=== PATIENT | male | born 1960 | race Caucasian/White ===

== ENCOUNTER 2019-09-26 13:56 | Outpatient (RCR) | payer SELFPAY | END 2019-10-15 23:59 | disposition home or self-care (01) | LOC: WOUND 13:56 | PROVIDERS: Family Provider Physician Assistant Medical; Visit Provider Nurse Practitioner Family | DX: I89.0 Lymphedema, not elsewhere classified (principal); L97.511 Non-pressure chronic ulcer of other part of right foot limited to breakdown of skin; L97.522 Non-pressure chronic ulcer of other part of left foot with fat layer exposed; L97.821 Non-pressure chronic ulcer of other part of left lower leg limited to breakdown of skin | CPT/HCPCS: 99204; 99214 ==

== ENCOUNTER 2022-11-27 18:19 | Emergency (ER) | payer SELFPAY ==
[2022-11-27] VITALS (10 sets, daily range): BP systolic 129–148; BP diastolic 60–78; PULSE 60–88; RESP 12–18; TEMP 37; O2SAT 97–100; BMI 25.0
--- NOTE | 2022-11-27 18:23 | ECG_ITS ---
Test Date: 2022-11-27 Pat Name: Norm Torrez Department: Room: Gender: Male Ladle Watcher: : 1960 Requested By: Mihai Whitney Order Number: [id number] Dave MD: David Reyes M.D. Measurements Intervals Etta Rate: 89 P: 94 ME: 240 QRS: 40 QRSD: 93 T: 84 QT: 390 QTc: 475 Interpretive Statements SINUS RHYTHM WITH FIRST DEGREE AV BLOCK LEFT VENTRICULAR HYPERTROPHY AND ST-T CHANGE [VOLTAGE CRITERIA PLUS ST/T ABNORMALITY] Nonspecific T wave changes Compared to ECG 07/17/2015 17:48:16 ST (T wave) deviation now present Electronically Signed On 11-27-2022 21:10:24 CDT by David Reyes M.D. [id number]
--- NOTE | 2022-11-27 18:35 | XRR_ITS ---
PROCEDURE INFORMATION: Exam: XR Chest Exam date and time: 11/27/2022 6:43 PM Age: 62 years old Clinical indication: Other: Posterior in upper back; Patient HX: C/O chest pain; Additional info: Cp TECHNIQUE: Imaging protocol: Radiologic exam of the chest. Views: 1 view. COMPARISON: No relevant prior studies available. FINDINGS: Lungs: No consolidation. Pleural spaces: No pleural effusion. No pneumothorax. Heart/Mediastinum: No cardiomegaly. Bones/joints: Visualized osseous structures are intact. XR/XR chest 1V portable [id number] IMPRESSION: No acute findings.
--- NOTE | 2022-11-27 18:37 | ED_ITS ---
HPI - Chest Pain General: Chief Complaint: Chest Pain Stated Complaint: STEMI Alert Time Seen by Provider: 11/27/22 18:34 Source: patient and EMS Mode of arrival: EMS Limitations: no limitations History of Present Illness: This patient was transported from his home via EMS. The initial notification fr EMS came in as a possible STEMI alert. The patient stated to this examiner that he developed chest pain at approximately 5 AM. He states his symptoms began with pain in his arms then proceeded to have pain in his chest. He states that it seemed to radiate to his back at some times. He denies to be ripping or tearing it did not to be related to position or activity. He states that he thought he had a heart attack many years ago but did not receive any intervention such as angiogram stent placement etc. He states he drink several beers today thought it make him feel better but to no avail. Eventually his daughter who came to see him called EMS and they arrived. Upon arrival EMS perf ormed an EKG thought there might be some ST wave changes and that thought combined with his symptoms he received 324 mg of aspirin chewed as well as a sublingual and topical nitroglycerin. He is patient states his symptoms are much improved but not completely resolved. Patient denies any recent illness cough congestion fever chest wall injury, skin rashes etc. Should be noted that cardiology was present at the time of the patient's initial presentation given that it was called out as a STEMI alert. MD complaint: chest pain Pertinent past history: prior ND Onset (ago): hour(s) Onset: during rest Pain location: substernal Pain radiation: right arm and left arm Quality: aching Relieving factors: nitroglycerin Associated symptoms: Reports abdominal pain and nausea; Deny dyspnea, fever(s), syncope or vomiting Risk Factors: Coronary artery disease risk factors: smoking history Review of Systems Const: Denies: fever(s) or chills Eyes: Denies: change in vision ENMT: Denies: throat pain, odynophagia, nasal discharge or nasal congestion Card: Reports: chest pain; Denies: syncope or pre-syncope Resp: Denies: dyspnea, productive cough or non-productive cough GI: Reports: abdominal pain and nausea; Denies: vomiting, diarrhea or melena : Denies: flank pain, difficulty urinating, dysuria or urinary frequency Musc: Reports: back pain; Denies: neck pain, extremity pain or extremity swelling Skin/Breast: Denies: rash Neuro: Denies: headache(s), numbness in extremities or weakness in extremities Psych: Denies: anxiety or depression Physical Exam Narrative: EXAM NARRATIVE: The patient is alert makes good eye contact answers questions in a goal-directed fashion. Const: COMMON NORMALS: no acute distress, patient oriented x3 and alert GENERAL APPEARANCE: cooperative NUTRITIONAL APPEARANCE: thin ORIENTATION/CONSCIOUSNESS: Yes awake and Yes oriented to person HENMT: COMMON NORMALS: normocephalic, Normal nasal mucous membranes and turbinates present, moist oral mucous membranes and oropharynx normal HEAD & SCALP: normocephalic NOSE: Normal nasal mucous membranes and turbinates present Eye: COMMON NORMALS: Equal, round and reactive pupils present, EOMs intact bilaterally and conjunctivae normal CONJUNCTIVA: Yes conjunctivae normal PUPIL: Yes Equal, round and reactive pupils present Neck/C-Spine: COMMON NORMALS: full ROM, no lymphadenopathy, no JVD and No carotid bruits Chest: COMMONS NORMALS: normal inspection of the chest and normal palpation of entire chest wall Resp: COMMON NORMALS: normal respiratory effort, No retractions, No use of accessory muscles and clear to auscultation bilaterally AUSCULTATION: clear to auscultation bilaterally Cardio: COMMON NORMALS: no JVD, regular rate, regular rhythm and Peripheral pulses 2+ throughout RATE: regular rate RHYTHM: regular rhythm HEART SOUNDS: Murmur heart sound present (3/6 ) systolic PERIPHERAL PULSES: Peripheral pulses 2+ throughout GI: COMMON NORMALS: Normal to inspection, nondistended, normoactive bowel sounds present, Soft to palpation, no masses and no bruits PALPATION: Yes Soft to palpation : COMMON NORMALS: Yes no CVA tenderness BLADDER/KIDNEY EXAM: Yes no CVA tenderness Back/Pelvis: COMMON NORMALS: no CVA tenderness, thoracic and lumbar spine normal to inspection, no thoracic nor lumbar tenderness, thoraco-lumbar ROM normal and straight leg raise negative bilaterally Extremity: COMMON NORMALS: normal to inspection, full ROM, capillary refill normal, no calf tenderness and no pedal edema Neuro: COMMON NORMALS: patient oriented x3, moves all extremities, no focal mo tor deficits and no sensory deficits noted SENSORIUM/ORIENTATION: Yes alert and Yes oriented to person CRANIAL NERVES: Yes CN normal except as noted Psych: COMMON NORMALS: mental status grossly normal Skin: COMMON NORMALS: no wounds, turgor normal and no jaundice NARRATIVE SKIN EXAM: He has hyperpigmentation of the skin and soft tissues of both lower extremities with some evidence of dry flaky skin consistent with venous insufficiency. No evidence of skin breakdown, ulcers, erythema redness drainage etc. GENERAL SKIN EXAM: turgor normal Course Reevaluation(s): Reevaluation #1: Patient is remained stable since arrival. No ongoing chest pains. Normal vital signs. Family is now present. I spent some time discussing current findings their implications and limitations with both the patient and family which included his daughter and his mother. Again the patient had greater than 10 hours of symptoms prior to arrival and has had negative biomarkers and unremarkable EKGs which are reassuring. Time: 21:17 Vital Signs: Vital signs: Vital Signs Temperature 98.6 F 11/27/22 18:35 Pulse Rate 60 11/27/22 20:45 Respiratory Rate 15 11/27/22 20:45 Blood Pressure 142/64 11/27/22 20:45 Pulse Oximetry 100 11/27/22 20:45 Oxygen Delivery Me thod Room Air 11/27/22 19:30 MDM - Chest Pain Medical Decision Making Patient eventually made his way to the emergency department after approximately 10 to 12 hours of chest pain continuous and nature. Initially billed as a possible STEMI alert initial EKG in the emergency department did not reveal any ST-T wave changes. Patient's symptoms were improved in route with nitroglycerin. We will proceed with additional work-up to rule out any ACS etc. Patient's work-up ensued. Biomarkers and serial EKGs were unremarkable for any acute changes mitigating against acute ACS. Chest x-ray was reassuring and his vital signs remained reassuring while in the emergency department. Of note is that he had a anemia with decreased indices but an elevated RDW. Had normal white count and normal platelet count indicative that he had an isolated red cell line involvement. He also had a notable hyponatremia with out any evidence of volume depletion. This presentation is unlikely to represent ACS or ongoing cardiac ischemia. His chronic alcohol use, his anemia strongly suggest alcoholic gastritis probable chronic blood loss as the etiology of his of his anemia. He was not hypoxic not tachycardic and not symptomatic indicating its more of a chronic blood loss. He denies any history of melanotic stools bright red blood per stools etc. We spent some time discussing his current presentation and likely etiology to his anemia and need for close follow-up as well as some lifestyle changes. Discussed the need to reduce his beer intake as this is likely the etiology to much of his current chemistry pertubation this evening. We will place him on a proton pump inhibitor for the next 6 weeks and also have him get a consultation with a primary care clinic in his [place] area for follow-up CBC and further evaluation as indicated. If he continues to consume alcohol he is likely not to have significant improvement in his current biochemistry as well as his hemoglobin. Also discussed use of compression sleeves to help with his chronic venous insufficiency. Again this discussion was had in earnest with both he and his family who voiced understanding and will also aid in ensuring that he follows through with the recommendations. Currently stable at this time for discharge with return precautions. Lab Data I reviewed the patient's lab results. 11/27/22 19:25 11/27/22 18:31 Radiology Impressions Chest X-Ray 11/27/22 18:35 IMPRESSION: No acute findings. Laboratory Results WBC 4.5 10^3/uL (4.0-10.0) 11/27/22 19:25 Corrected WBC Cancelled 11/27/22 18:31 RBC 3.77 10^6/uL (4.1-5.3) L 11/27/22 19:25 Hgb 7.5 g/dL (11.7-16.6) L 11/27/22 19:25 Hct 26.4 % (42.0-52.0) L 11/27/22 19:25 MCV 70.0 fl (80-94) L 11/27/22 19:25 MCH 19.9 pg (28.0-34.0) L 11/27/22 19:25 MCHC 28.4 g/dL (30.0-36.0) L 11/27/22 19:25 RDW 19.7 % (12.1-15.1) H 11/27/22 19:25 Plt Count 190 10^3/cmm (130-400) 11/27/22 19:25 MPV 9.0 fL (7.4-10.4) 11/27/22 19:25 Gran % Cancelled 11/27/22 18:31 Neut % (Auto) 53.4 % 04/13/23 19:25 Lymph % (Auto) 32.0 % 11/27/22 19:25 Kidder % (Auto) 10.6 % 11/27/22 19:25 Eos % (Auto) 2.4 % 11/27/22 19:25 Baso % (Auto) 0.9 % 11/27/22 19:25 Neut # (Auto) 2.42 10^3/uL (1.8-7.7) 11/27/22 19:25 Lymph # (Auto) 1.5 10^3/uL (0.8-4.8) 11/27/22 19:25 Kidder # (Auto) 0.5 10^3/uL (0.2-0.9) 11/27/22 19:25 Eos # (Auto) 0.1 10^3/uL (0.0-0.8) 11/27/22 19:25 Baso # (Auto) 0.0 10^3/uL (0.0-0.1) 11/27/22 19:25 Absolute Gran (auto) Cancelled 11/27/22 18:31 Nucleated RBC % (auto) 0 % 11/27/22 19: Nucleated RBCs # 0.0 /100WBC 11/27/22 19:25 Sodium 122 mmol/L (136-145) L 11/27/22 18:31 Potassium 4.9 mmol/L (3.5-5.1) 11/27/22 18:31 Chloride 88 mmol/L (98-107) L 11/27/22 18:31 Carbon Dioxide 19 mmol/L (22-29) L 11/27/22 18:31 Anion Gap 19.9 (5-19) H 11/27/22 18:31 BUN 5 mg/dL (8-23) L 11/27/22 18:31 Creatinine 0.4 mg/dL (0.7-1.2) L 11/27/22 18:31 GFR Calculation 217.3 mL/min (90-130) H 11/27/22 18:31 Glucose 73 mg/dL (65-115) 11/27/22 18:31 Calculated Osmolality 250 mOsm/kg (285-295) L 11/27/22 18:31 Calcium 8.4 mg/dL (8.5-10.5) L 11/27/22 18:31 Total Bilirubin 0.4 mg/dL (0.15-1.2) 11/27/22 18:31 AST 47 U/L (0-40) H 11/27/22 18:31 ALT 12 U/L (0-41) 11/27/22 18:31 Alkaline Phosphatase 116 U/L (40-130) 11/27/22 18:31 Troponin T Baseline 11 ng/L (0-15) 11/27/22 18:31 Troponin T 120 Minute 10.30 ng/L (0-15) 11/27/22 20:29 Total Protein 9.2 g/dL (6.6-8.7) H 11/27/22 18:31 Albumin 4.2 g/dL (3.5-5.2) 11/27/22 18:31 Globulin 5.0 g/dL (1.3-4.6) H 11/27/22 18:31 EKG Data EKG 1: I personally reviewed and interpreted this EKG as follows: Interpretation: Resting EKG revealed a ventricular rate of 89 bpm. AZ interval is prolonged consistent with a first-degree AV block. Normal axis normal QRS duration normal corrected QT interval. No evidence of ST-T wave changes consistent with STEMI at this time. EKG 2: I personally reviewed and interpreted this EKG as follows: Interpretation: Contemporaneous review of second EKG this visit revealed to 66 bpm. He has a prolonged AZ interval consistent with first-degree AV block. Has normal QRS duration, normal corrected QT interval. Normal axis. No acute ST-T wave changes of concern at this time. No change from prior tracing this visit. Discharge Plan Discharge Patient Disposition: Home Clinical Impression: Chest pain, Anemia, Alcohol use disorder, Chronic venous insufficiency of lower extremity Condition: Stable Prescriptions: New pantoprazole [Protonix] 40 mg tablet,delayed release (DR/EC) 40 mg PO QAM 42 Days Qty: 42 0RF Discharge Orders: Discharge ED (Routine); Ordered 11/27/22 Ordered By: Mihai Whitney Referrals: Juni Ragsdale [Referring] - Discharge Diet: Usual diet Discharge Activity: Increase activity as tolerated Patient Instructions: Gastritis (ED), Opioid Safety, Pain Management Activity Restrictions/Additional Instructions: As we discussed your evaluation in the emergency department this evening did not reveal any heart causes of your chest pains today. We think that some of your symptoms of likely related to inflammation of your stomach lining from your chronic alcohol drinking. We also think that is led to an anemia as well as some other changes in your blood chemistry and sodium. We highly recommend you markedly decreased your alcohol consumption or discontinue it entirely would be the preference. We have also prescribed a medication for you to help with your stomach to help it heal from the inflammation of the alcohol. We recommend eating a regular diet to include salting your food at the table etc. Watch your bowel movements for any sign of black tarry stools or blood in your stools. As we also discussed we are having our shelter case manager arrange a follow-up appointment with you with one of the local primary care clinics. If you start having worsening symptoms feeling lightheaded dizzy recurrent chest pains abdom inal pains blood in your stools etc. return to this or the nearest emergency department. We also recommend getting compression sleeves such as those that are sold in sporting goods stores for runners etc. and wear those on your lower legs to help reduce your skin problems from your leaky veins. Coding Level of Care Code ED Box Printer for Hyun Araujo
[2022-11-27] MEDS: sodium chloride 0.9% 500 ML 999 ML IV (19:02)
[2022-11-27] MEDS: famotidine 20 mg/2 mL INJ 40 MG IVP (19:02)
[2022-11-27 19:05] LABS: Troponin(5th) Baseline 11 ng/L (0-15)
[2022-11-27 19:07] LABS: Alanine Aminotransferase 12 U/L (0-41); Albumin Level 4.2 g/dL (3.5-5.2); Alkaline Phosphatase 116 U/L (40-130); Blood Urea Nitrogen 5 mg/dL (8-23); Calcium 8.4 mg/dL (8.5-10.5); Carbon Dioxide 19 mmol/L (22-29); Chloride 88 mmol/L (98-107); Glomerular Filtration Rate 217.3 mL/min (90-130); Glucose 73 mg/dL (65-115); Osmolality Calculated 250 mOsm/kg (285-295); Sodium 122 mmol/L (136-145); Total Bilirubin 0.4 mg/dL (0.15-1.2); Total Protein 9.2 g/dL (6.6-8.7)
[2022-11-27 19:26] LABS: Anion Gap 19.9 (5-19); Potassium 4.9 mmol/L (3.5-5.1)
[2022-11-27 19:27] LABS: Aspartate Amino Transferase 47 U/L (0-40)
[2022-11-27 19:48] LABS: Basophils % 0.9 %; Eosinophils # 0.1 10^3/uL (0.0-0.8); Eosinophils % 2.4 %; Hematocrit 26.4 % (42.0-52.0); Hemoglobin 7.5 g/dL (11.7-16.6); Lymphocytes # 1.5 10^3/uL (0.8-4.8); Mean Corpuscular HGB Conc 28.4 g/dL (30.0-36.0); Mean Corpuscular Hemoglobin 19.9 pg (28.0-34.0); Monocytes # 0.5 10^3/uL (0.2-0.9); Monocytes % 10.6 %; Neutrophils # 2.42 10^3/uL (1.8-7.7); Neutrophils % 53.4 %; Nucleated Red Blood Cells % 0 %; Platelet Count 190 10^3/cmm (130-400); Red Blood Count 3.77 10^6/uL (4.1-5.3); Red Cell Distribution Width 19.7 % (12.1-15.1); White Blood Count 4.5 10^3/uL (4.0-10.0)
--- NOTE | 2022-11-27 20:42 | ECG_ITS ---
[facility] Test Date: 2022-11-27 Pat Name: Norm Torrez Department: Room: Gender: Male Strategy Director: : 1960 Requested By: Mihai Whitney Order Number: [id number] Dave MD: David Reyes M.D. Measurements Intervals Fowler Rate: 66 P: 43 SD: 254 QRS: 46 QRSD: 85 T: 92 QT: 464 QTc: 488 Interpretive Statements SINUS RHYTHM WITH FIRST DEGREE AV BLOCK LEFT VENTRICULAR HYPERTROPHY AND ST-T CHANGE [VOLTAGE CRITERIA PLUS ST/T ABNORMALITY] Compared to ECG 11/27/2022 18:23:21 No significant changes Electronically Signed On 11-27-2022 21:15:31 CDT by David Reyes M.D. [id number]
[2022-11-27 21:22] LABS: Troponin 5 2HR Delta -0.7 ABS# (0-10)
--- NOTE | 2022-11-28 09:13 | DCPLANNER ---
manager laboratory had message to speak with patient about getting established with a primary care physician. manager laboratory called patient, unable to speak with patient at this time, unable to leave a voicemail for patient.
--- NOTE | 2022-12-03 12:57 | DCPLANNER ---
gym manager called patient due to no primary care physician - no answer at this time.
== END 2022-11-27 21:40 | disposition home or self-care (01) ==
PROVIDERS: Emergency Provider Emergency Medicine
DX: R07.9 Chest pain, unspecified (principal); D64.9 Anemia, unspecified; F10.90 Alcohol use, unspecified, uncomplicated; I87.2 Venous insufficiency (chronic) (peripheral)
CPT/HCPCS: 36415; 71045; 80053; 84484; 85025; 93005; 96361; 96374; 99285; J3490; J7040

== ENCOUNTER 2024-07-22 13:41 | Emergency (ER) | payer MEDICAID, SELFPAY ==
[2024-07-22 13:45] VITALS: BP 148/92; PULSE 96; RESP 17; TEMP 36.4; O2SAT 100; BMI 20.5
== END 2024-07-22 14:13 | disposition left against medical advice (07) ==
PROVIDERS: Emergency Provider Family Medicine
DX: Z53.21 Procedure and treatment not carried out due to patient leaving prior to being seen by health care provider (principal)